=== PATIENT | male | born 1960 | race Caucasian/White ===

== ENCOUNTER → 2016-09-16 | Outpatient (CLI) | payer OTHER ==
[2016-09-16 14:54] LABS: TOTAL PROTEIN 7.1 g/dL (6.4-8.5)
== END ==
LOC: LAB 14:22
PROVIDERS: ATTEND Podiatrist
DX: B35.1 Tinea unguium (principal)
CPT/HCPCS: 36415; 80076

== ENCOUNTER → 2016-10-13 | Outpatient (CLI) | payer OTHER ==
[~2016-10-13] MED LIST: OLME20TA5 PO; PANT40TA3 PO
--- NOTE | 2016-10-13 12:44 | Diagnostic Imaging Report ---
INDICATION: Cough. Sinusitis. Multiple axial CT images through the paranasal sinuses are performed. 2-D reconstruction is performed AVAILABLE COMPARISONS: None Right maxillary sinus has moderate soft tissue thickening with probable small air-fluid level at its posterior aspect. Left maxillary sinus is unremarkable. The right maxillary ostia is partially obscured by soft tissue thickening. The left is patent. A right tavo bullosa is present. Ethmoid sinuses showed no significant abnormality. The frontal and sphenoid sinuses are negative. The orbits are negative. Visualized portion of the brain is negative. Visualized nasopharynx is unremarkable. IMPRESSION: 1. Chronic right maxillary sinusitis with small air-fluid level in the right maxillary sinus. 2. Otherwise negative study. Report was called to Angelica/civil preparedness training officer of Dr Gaston by nicole at 12:44 p.m. Dictated by: Dictated on workstation # [id number]
== END ==
LOC: RAD 11:27
PROVIDERS: ATTEND Family Medicine
DX: R05 Cough (principal); J32.0 Chronic maxillary sinusitis

== ENCOUNTER → 2016-12-09 | Outpatient (REF) | payer OTHER | LOC: LAB 12:24 | PROVIDERS: ATTEND Family Medicine | DX: R05 Cough (principal) | CPT/HCPCS: 87798 ==